=== PATIENT | male | born 1990 | race Caucasian/White ===

== ENCOUNTER → 2021-04-20 | Outpatient (CLI) | payer BC ==
[2021-04-20 13:33] LABS: ALBUMIN 4.8 g/dL (3.5-5.0); POTASSIUM 4.1 mmol/L (3.5-5.1)
[2021-04-20 13:34] LABS: CALCIUM 9.8 mg/dL (8.3-10.5)
[2021-04-20 13:35] LABS: TOTAL PROTEIN 7.5 g/dL (6.4-8.3)
[2021-04-20 13:37] LABS: TOTAL BILIRUBIN 0.5 mg/dL (0.2-1.2)
== END ==
LOC: LAB 13:04
PROVIDERS: Family Medicine
DX: Z00.00 Encounter for general adult medical examination without abnormal findings (principal); Z13.1 Encounter for screening for diabetes mellitus; Z13.220 Encounter for screening for lipoid disorders; Z68.30 Body mass index [BMI] 30.0-30.9, adult; Z83.49 Family history of other endocrine, nutritional and metabolic diseases

== ENCOUNTER → 2023-04-02 | Outpatient (CLI) | payer BC ==
[2023-04-02 08:24] LABS: HEMATOCRIT 44.8 % (42.0-52.0); HEMOGLOBIN 15.3 g/dL (13.5-18.0); MEAN PLATELET VOLUME 8.9 fl (7.4-10.4); RED BLOOD COUNT 5.34 M/mm3 (4.20-5.60); RED CELL DISTRIBUTION WIDTH 12.1 % (11.5-14.5); WHITE BLOOD COUNT 9.5 K/mm3 (4.8-10.8)
== END ==
LOC: LAB 08:09
PROVIDERS: Family Medicine
DX: R77.8 Other specified abnormalities of plasma proteins (principal); E78.2 Mixed hyperlipidemia